=== PATIENT | female | born 1970 | race Caucasian/White ===

== ENCOUNTER 2024-02-19 13:42 | Emergency (ER) | payer BC ==
[~2024-02-19] VITALS: Ht 175.3 cm; Wt 95.5 kg
[~2024-02-19 13:42] MED LIST: NO HOME MEDS
[2024-02-19 14:40] LABS: BASOPHILS % (AUTO) 0.7 % (0-1); EOSINOPHILS # (AUTO) 0.1 X10'3 (0-0.9); EOSINOPHILS % (AUTO) 1.6 % (0-6); HEMATOCRIT 40.4 % (35.0-45.0); HEMOGLOBIN 14.1 g/dl (12.0-16.0); LYMPHOCYTES # (AUTO) 1.8 X10'3 (1.1-4.8); LYMPHOCYTES % (AUTO) 26.9 % (21-51); MEAN CORPUSCULAR HEMOGLOBIN 33.2 PG (27.0-31.0); MEAN CORPUSCULAR HGB CONC 34.8 g/dL (33.0-36.5); MEAN CORPUSCULAR VOLUME 95.3 FL (78-98); MEAN PLATELET VOLUME 9.4 FL (7.4-10.4); MONOCYTES # (AUTO) 0.4 X10'3 (0-0.9); MONOCYTES % (AUTO) 6.2 % (2-12); NEUTROPHILS # (AUTO) 4.3 X10'3 (1.8-7.7); NEUTROPHILS % (AUTO) 64.6 % (42-75); PLATELET COUNT 193 X10'3 (140-440); RED BLOOD COUNT 4.24 X10'6 (4.20-5.60); RED CELL DISTRIBUTION WIDTH 13.1 % (11.5-14.5); WHITE BLOOD COUNT 6.6 X10'3 (4.5-11.0)
[2024-02-19 14:56] LABS: ALANINE AMINOTRANSFERASE 18 U/L (12-78); ALBUMIN 4.2 G/DL (3.4-5.0); ALBUMIN/GLOBULIN RATIO 1.3 (1.1-1.5); ALKALINE PHOSPHATASE 77 IU/L (46-116); ANION GAP 7 (8-16); ASPARTATE AMINO TRANSFERASE 16 U/L (10-37); BILIRUBIN,TOTAL 0.7 MG/DL (0.1-1.0); BLOOD UREA NITROGEN 16 MG/DL (7-18); BUN/CREATININE RATIO 18.8 (10.0-20.0); CALCIUM 9.2 MG/DL (8.5-10.1); CHLORIDE 104 MMOL/L (99-107); CREATININE 0.85 MG/DL (0.40-0.90); GLUCOSE 93 MG/DL (70-104); LIPASE 24 U/L (16-77); POTASSIUM 3.9 MMOL/L (3.5-5.1); SODIUM 138 MMOL/L (135-145); TOTAL CARBON DIOXIDE 27.3 MMOL/L (24-32); TOTAL PROTEIN 7.4 G/DL (6.4-8.2); eCRCL 78 ML/MIN; eGFR 69 ML/MIN
[2024-02-19 15:15] LABS: URINE HCG NEGATIVE (NEG)
[2024-02-19 15:16] LABS: BILIRUBIN,URINE NEGATIVE (Neg); CLARITY,URINE SLIGHTLY CLOUDY (Clear); COLOR,URINE STRAW (Yellow); GLUCOSE, URINE NEGATIVE (Neg); KETONES,URINE NEGATIVE (Neg); LEUKOCYTE ESTERASE ,URINE LARGE (Neg); NITRITES, URINE NEGATIVE (Neg); OCCULT BLOOD,URINE NEGATIVE (Neg); PROTEIN,URINE NEGATIVE (Neg); UROBILINOGEN,URINE 0.2 E.U/dL (0.2-1.0)
[2024-02-19] MEDS ORDERED: iohexol 300mg/ml 100ml inj. ONE (15:16)
[2024-02-19] MEDS: ketorolac trometh 30MG/ML vial 30 MG/ML VIAL IV ONE (15:22)
[2024-02-19 15:31] LABS: UA COLLECTION TYPE CLN CATCH MIDSTREAM
[2024-02-19 15:32] LABS: SQUAMOUS EPITHELIAL CELL,UR MODERATE /LPF (FEW)
[2024-02-19 15:33] LABS: BACTERIA,URINE 1+ /HPF (Neg); RBC,URINE NONE SEEN /HPF (0-2)
[2024-02-19] MEDS ORDERED: TRAM50TA2 PO (16:20)
[2024-02-19] MEDS ORDERED: PRED20TA PO (16:20)
[2024-02-19 16:37] VITALS: BP 123/78; PULSE 63; RESP 18; TEMP 97.8; O2SAT 97
== END 2024-02-19 16:38 | disposition home or self-care (01) ==
LOC: ER 13:43
DX: G89.29 Other chronic pain (principal); R10.12 Left upper quadrant pain; Z91.041 Radiographic dye allergy status
CPT/HCPCS: 36415; 74177; 80053; 81001; 81025; 83690; 85025; 87088; 96374; 99285; J1885; Q9967

== ENCOUNTER 2024-06-26 12:36 | Outpatient (CLI) | payer BC ==
[2024-06-26] MEDS ORDERED: iohexol 300mg/ml 100ml inj. ONE (13:09)
== END 2024-06-26 23:59 | disposition home or self-care (01) ==
LOC: RAD 12:36
PROVIDERS: ATTEND Anesthesiology Pain Medicine
DX: R91.8 Other nonspecific abnormal finding of lung field (principal); R07.81 Pleurodynia
CPT/HCPCS: 71270; Q9967

== ENCOUNTER 2024-09-24 17:13 | Emergency (ER) | payer BC, MEDICAID ==
[~2024-09-24] VITALS: Ht 175.3 cm; Wt 83.4 kg
[2024-09-24 17:21] VITALS: BP 161/89; PULSE 76; TEMP 98.5; O2SAT 99
[2024-09-24 18:10] LABS: BASOPHILS # (AUTO) 0.1 X10'3 (0-0.2); BASOPHILS % (AUTO) 0.9 % (0-1); EOSINOPHILS # (AUTO) 0.3 X10'3 (0-0.9); EOSINOPHILS % (AUTO) 4.9 % (0-6); HEMATOCRIT 39.6 % (35.0-45.0); HEMOGLOBIN 13.7 g/dl (12.0-16.0); LYMPHOCYTES # (AUTO) 1.5 X10'3 (1.1-4.8); LYMPHOCYTES % (AUTO) 26.4 % (21-51); MEAN CORPUSCULAR HEMOGLOBIN 33.1 PG (27.0-31.0); MEAN CORPUSCULAR HGB CONC 34.6 g/dL (33.0-36.5); MEAN CORPUSCULAR VOLUME 95.8 FL (78-98); MEAN PLATELET VOLUME 9.2 FL (7.4-10.4); MONOCYTES # (AUTO) 0.5 X10'3 (0-0.9); MONOCYTES % (AUTO) 7.9 % (2-12); NEUTROPHILS # (AUTO) 3.5 X10'3 (1.8-7.7); NEUTROPHILS % (AUTO) 59.9 % (42-75); PLATELET COUNT 197 X10'3 (140-440); RED BLOOD COUNT 4.13 X10'6 (4.20-5.60); WHITE BLOOD COUNT 5.8 X10'3 (4.5-11.0)
[2024-09-24 18:35] LABS: D-DIMER 0.31 MG/L FEU (0-0.50)
[2024-09-24 18:41] LABS: ALANINE AMINOTRANSFERASE 69 U/L (12-78); ALBUMIN/GLOBULIN RATIO 1.1 (1.1-1.5); ALKALINE PHOSPHATASE 99 IU/L (46-116); ANION GAP 5 (8-16); ASPARTATE AMINO TRANSFERASE 42 U/L (10-37); BILIRUBIN,TOTAL 0.3 MG/DL (0.1-1.0); BLOOD UREA NITROGEN 16 MG/DL (7-18); BUN/CREATININE RATIO 22.9 (10.0-20.0); CALCIUM 8.7 MG/DL (8.5-10.1); CHLORIDE 106 MMOL/L (99-107); GLUCOSE 94 MG/DL (70-104); POTASSIUM 3.6 MMOL/L (3.5-5.1); SODIUM 140 MMOL/L (135-145); TOTAL CARBON DIOXIDE 28.9 MMOL/L (24-32); TOTAL PROTEIN 7.7 G/DL (6.4-8.2); eCRCL 94 ML/MIN; eGFR 87 ML/MIN
[2024-09-24 18:47] LABS: PRO BRAIN NATRIURETIC PEPTIDE 173 PG/ML (0-125)
[2024-09-24] MEDS: ondansetron 4mg rapidly disintigrating tab PO ONE (18:56)
[2024-09-24] MEDS: LORazepam 0.5 MG tablet PO ONE (18:56)
[2024-09-24] MEDS: HYDROcodone/acetaminophen 5mg/325mg tablet PO ONE (18:57)
[2024-09-24 18:58] VITALS: RESP 16
[2024-09-24] MEDS: ketorolac trometh 30MG/ML vial 30 MG/ML VIAL IM ONE (18:58)
[2024-09-24] MEDS: ketorolac trometh 15mg/ml vial 15 MG/ML ML IM ONE (18:59)
== END 2024-09-24 20:05 | disposition home or self-care (01) ==
LOC: ER 17:14
DX: R07.89 Other chest pain (principal); Z88.1 Allergy status to other antibiotic agents
CPT/HCPCS: 36415; 71045; 80053; 83880; 84484; 85025; 85379; 93005; 96372; 99285; J1885